=== PATIENT | male | born 1960 | race American Indian/Alaskan Native ===

== ENCOUNTER 2016-03-13 08:01 | Emergency (ER) | payer MEDICAID ==
[2016-03-13 09:43] LABS: Basophils % (Auto) 0.8 % (0.0-1.8); Eosinophils % (Auto) 2.1 % (0.0-4.3); Hematocrit 41.1 % (35.5-45.6); Hemoglobin 13.4 gm/dl (11.8-15.2); Mean Corpuscular HGB Conc 33 % (32-34); Mean Corpuscular Volume 77 fl (84-94); Platelet Count 240 K/mm3 (140-440); Red Blood Count 5.32 M/mm3 (3.65-5.03); Red Cell Distribution Width 14.8 % (13.2-15.2); White Blood Count 8.5 K/mm3 (4.5-11.0)
[2016-03-13 09:45] LABS: Bilirubin,Urine NEG (Negative); Blood,Urine NEG (Negative); Ketones,Urine NEG (Negative); Leukocyte Esterase,Urine NEG (Negative); Mucus,Urine FEW /HPF; Nitrite,Urine NEG (Negative); Protein,Urine <15 mg/dL mg/dL (Negative); Urobilinogen,Urine < 2.0 mg/dL (<2.0); WBC,Urine < 1.0 /HPF (0.0-6.0)
[2016-03-13 09:50] LABS: Mean Corpuscular Hemoglobin 25 pg (28-32)
--- NOTE | 2016-03-13 09:57 | Emergency Department Report ---
ED Extremity Problem HPI - General Chief complaint: Extremity Problem,Nontraumatic Stated complaint: LEG/FEET/DIABETIC Source: patient Mode of arrival: Ambulatory Limitations: No Limitations - History of Present Illness Initial comments: Patient is a 55-year-old diabetic male on metformin 500 mg twice a day who presents to ED complaining of left leg swelling and pain. Patient states he was seen here a while ago for the same problem. Patient describes pain as throbbing in nature. Patient states he is on Lasix as well as metformin 500 mg twice a day. Patient states bilateral leg swelling of these leg and ankle. Patient rates pain 8 out of 10. Patient states he went to see her doctor recently who prescribed him some compression stockings but patient has not been able to pick them up. Patient denies fevers/chills/nausea/vomiting/abdominal pain/pleural effusion/ headache/trauma to the leg or fall. - Related Data Previous Rx's Medication Instructions Recorded Last Taken Type Potassium Chloride 20 meq PO DAILY #7 tab.er.prt 10/19/15 Unknown Rx traMADol [Ultram 50 MG tab] 50 mg PO Q6HR PRN #20 tablet 10/19/15 Unknown Rx Furosemide [Lasix TAB] 40 mg PO QDAY #20 tablet 03/13/16 Unknown Rx HYDROcodone/APAP 5-325 [[place] 1 each PO Q6HR PRN #16 tablet 03/13/16 Unknown Rx 5/325] Ibuprofen [Motrin 800 MG tab] 800 mg PO Q8HR PRN #30 tablet 03/13/16 Unknown Rx metFORMIN [Glucophage] 500 mg PO BID #60 tablet 03/13/16 Unknown Rx Allergies Allergy/AdvReac Type Severity Reaction Status Date / Time Penicillins Allergy Hives Verified 10/19/15 07:46 ED Review of Systems ROS: Stated complaint: LEG/FEET/DIABETIC Other details as noted in HPI Constitutional: denies: chills, fever Eyes: denies: eye pain, eye discharge, vision change ENT: denies: ear pain, throat pain Respiratory: denies: cough, shortness of breath, SOB with exertion, SOB at rest , wheezing Cardiovascular: denies: chest pain, palpitations Endocrine: no symptoms reported Gastrointestinal: denies: abdominal pain, nausea, vomiting, diarrhea Genitourinary: denies: urgency, dysuria, frequency, hematuria, discharge Musculoskeletal: denies: back pain, joint swelling, arthralgia Skin: denies: rash, lesions Neurological: denies: headache, weakness, paresthesias, confusion, abnormal gait Psychiatric: denies: anxiety, depression, suicidal thoughts Hematological/Lymphatic: denies: easy bleeding, easy bruising ED Past Medical Hx - Past Medical History Hx Diabetes: Yes (type II) Additional medical history: depression - Surgical History Past Surgical History?: No - Social History Smoking Status: Current Every Day Smoker Substance Use Type: None - Medications Home Medications: Home Medications Medication Instructions Recorded Confirmed Last Taken Type Potassium Chloride 20 meq PO DAILY #7 tab.er.prt 10/19/15 Unknown Rx traMADol [Ultram 50 MG tab] 50 mg PO Q6HR PRN #20 tablet 10/19/15 Unknown Rx Furosemide [Lasix TAB] 40 mg PO QDAY #20 tablet 03/13/16 Unknown Rx HYDROcodone/APAP 5-325 [[place] 1 each PO Q6HR PRN #16 tablet 03/13/16 Unknown Rx 5/325] Ibuprofen [Motrin 800 MG tab] 800 mg PO Q8HR PRN #30 tablet 03/13/16 Unknown Rx metFORMIN [Glucophage] 500 mg PO BID #60 tablet 03/13/16 Unknown Rx ED Physical Exam - General Limitations: No Limitations General appearance: alert, in no apparent distress - Head Head exam: Present: atraumatic, normocephalic - Eye Eye exam: Present: normal appearance - ENT ENT exam: Present: normal exam, mucous membranes moist - Neck Neck exam: Present: normal inspection, full ROM - Respiratory Respiratory exam: Present: normal lung sounds bilaterally. Absent: respiratory distress, wheezes, rales, rhonchi, chest wall tenderness, accessory muscle use - Cardiovascular Cardiovascular Exam: Present: regular rate, normal rhythm. Absent: systolic murmur, diastolic murmur, rubs, gallop - GI/Abdominal GI/Abdominal exam: Present: soft, normal bowel sounds. Absent: distended, tenderness, guarding, rebound - Rectal Rectal exam: Present: deferred - Extremities Exam Extremities exam: Present: normal inspection, full ROM, normal capillary refill , pedal edema, calf tenderness - Expanded Lower Extremity Exam Left Hip exam: Present: full ROM. Absent: tenderness, swelling Upper Leg exam: Present: normal inspection, full ROM. Absent: tenderness, swelling Knee exam: Present: full ROM, swelling (2+ edema). Absent: tenderness, dislocation, erythema, effusion Lower Leg exam: Present: full ROM, tenderness (to palpation of leg), swelling (2 + edema). Absent: abrasion, dislocation, erythema, Melissa's sign Ankle exam: Present: full ROM, swelling. Absent: tenderness, dislocation, erythema Foot/Toe exam: Present: full ROM. Absent: tenderness, dislocation, erythema, puncture wound Neuro vascular tendon exam: Present: no vascular compromise Gait: Positive: observed and normal - Back Exam Back exam: Present: normal inspection. Absent: full ROM, CVA tenderness (R), CVA tenderness (L) - Neurological Exam Neurological exam: Present: alert, oriented X3, CN II-XII intact - Psychiatric Psychiatric exam: Present: normal affect, normal mood - Skin Skin exam: Present: warm, dry, intact, normal color. Absent: rash ED Course Vital Signs 03/13/16 08:41 Temperature 98.2 F Pulse Rate 109 H Respiratory 18 Rate Blood Pressure 146/92 O2 Sat by Pulse 97 Oximetry ED Medical Decision Making - Lab Data Result diagrams: 03/13/16 09:29 03/13/16 09:29 - Medical Decision Making 55-year-old diabetic male presents with diabetic foot edema ED course: Patient received Toradol 50 mg for pain. 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 Discussed with patient medication dose increase forwardly 6. CBC within normal limits, CMP within normal limits, urine within normal limits. Blood glucose slightly elevated 178 otherwise all labs normal. Bilateral Doppler studies ordered. Bilateral Doppler studies shows normalas of DVT. Discussed all results with patient and patient understands. Discussed medication as prescribed. Patient states to comply and will follow up with primary care at [facility]. Critical care attestation.: If time is entered above; I have spent that time in minutes in the direct care of this critically ill patient, excluding procedure time. ED Disposition Clinical Impression: Diabetes mellitus type 2, noninsulin dependent, Bilateral leg edema, Hyperglycemia due to type 2 diabetes mellitus Disposition: DISCHARGED TO HOME OR SELFCARE Is pt being admited?: No Does the pt Need Aspirin: No Condition: Stable Instructions: Diabetes Mellitus Type 2 in Adults (ED), Leg Edema (ED) Additional Instructions: pick pulling machine operator copy of prescription for medicool's diasox stockings and applied them as directed. Follow-up with Dr Benz's office her primary care physician. Take prescription as prescribed.. Prescriptions: metFORMIN [Glucophage] 500 mg PO BID #60 tablet Furosemide [Lasix TAB] 40 mg PO QDAY #20 tablet Ibuprofen [Motrin 800 MG tab] 800 mg PO Q8HR PRN #30 tablet PRN Reason: Pain HYDROcodone/APAP 5-325 [Franklin 5/325] 1 each PO Q6HR PRN #16 tablet PRN Reason: Pain Referrals: PRIMARY CARE, [Primary Care Provider] - 3-5 Days Forms: Work/School Release Form(ED) Time of Disposition: 11:37
[2016-03-13 10:01] LABS: Alanine Aminotransferase 26 units/L (7-56); Albumin/Globulin Ratio 0.9 %; Alkaline Phosphatase 85 units/L (35-129); Bilirubin,Total 0.3 mg/dL (0.1-1.2); Blood Urea Nitrogen 11 mg/dL (9-20); Calcium 9.1 mg/dL (8.4-10.2); Carbon Dioxide 25 mmol/L (22-30); Chloride 100.8 mmol/L (98-107); Glucose 178 mg/dL (75-100); Potassium 3.8 mmol/L (3.6-5.0); Sodium 140 mmol/L (137-145); Total Protein 8.4 g/dL (6.3-8.2)
[2016-03-13 10:08] LABS: Anion Gap 18 mmol/L
[2016-03-13] MEDS ORDERED: ULTRAM PO ONE (11:08)
[2016-03-13 12:15] VITALS: BP 140/90
--- NOTE | 2016-03-14 07:44 | Vascular Lab Report ---
LOWER EXTREMITY VENOUS DUPLEX: REASON FOR EXAM: Pain and swelling of the lower extremities. COMMENTS ON THE RIGHT: All veins visualized are freely compressible without evidence of internal echogenicity. Flow is spontaneous and phasic throughout. COMMENTS ON THE LEFT: All veins visualized are freely compressible without evidence of internal echogenicity. Flow is spontaneous and phasic throughout. Soft tissue changes at the left knee are consistent with ruptured Mckeon's cyst. IMPRESSION: No evidence of acute or chronic deep venous thrombosis in either lower extremity.
== END 2016-03-13 12:14 | disposition home or self-care (01) ==
LOC: ED 08:01
DX: E11.65 Type 2 diabetes mellitus with hyperglycemia (principal); R60.0 Localized edema; F17.200 Nicotine dependence, unspecified, uncomplicated; Z88.0 Allergy status to penicillin
CPT/HCPCS: 36415; 80053; 81001; 85025; 93970

== ENCOUNTER 2017-10-27 16:51 | Inpatient (IN) | payer MEDICAID ==
[2017-10-27] MEDS ORDERED: NACL 0.9% 500 ML 500 ML IV ONE (17:06)
[2017-10-27 17:26] LABS: Basophils % (Auto) 0.4 % (0.0-1.8); Eosinophils # (Auto) 0.1 K/mm3 (0.0-0.4); Eosinophils % (Auto) 0.7 % (0.0-4.3); Hematocrit 42.7 % (35.5-45.6); Hemoglobin 14.5 gm/dl (11.8-15.2); Lymphocytes # (Auto) 1.5 K/mm3 (1.2-5.4); Lymphocytes % (Auto) 18.8 % (13.4-35.0); Mean Corpuscular HGB Conc 34 % (32-34); Mean Corpuscular Hemoglobin 27 pg (28-32); Mean Corpuscular Volume 81 fl (84-94); Monocytes # (Auto) 0.6 K/mm3 (0.0-0.8); Monocytes % (Auto) 7.1 % (0.0-7.3); Platelet Count 214 K/mm3 (140-440); Red Cell Distribution Width 14.5 % (13.2-15.2)
--- NOTE | 2017-10-27 17:28 | Emergency Department Report ---
HPI - General Chief Complaint: Wound/Laceration Time Seen by Provider: 10/27/17 17:19 - HPI HPI: 57-year-old male presents to the emergency department from home with complaint of left leg pain, swelling and possible infection. Patient says that he has been seen for this multiple times in the past but he has had an exacerbation of it over the past month. He came in today because he thought that he saw maggots on his leg. He's been having some pain, redness and some drainage. He has a history of [id number] diabetes and takes metformin 500 mg twice daily and says he is compliant with this. He does not have a primary care physician. No recent travel or sick contacts at home. Patient walks with a cane at baseline. He washed the leg although some alcohol today but otherwise has not taken anything else specifically to treat his symptoms. ED Past Medical Hx - Past Medical History Hx Diabetes: Yes (type II) Additional medical history: depression - Social History Smoking Status: Current Every Day Smoker Substance Use Type: None - Medications Home Medications: Home Medications Medication Instructions Recorded Confirmed Last Taken Type Potassium Chloride 20 meq PO DAILY #7 tab.er.prt 10/19/15 10/27/17 Unknown Rx Furosemide [Lasix TAB] 40 mg PO QDAY #20 tablet 03/13/16 10/27/17 Unknown Rx Ibuprofen [Motrin 800 MG tab] 800 mg PO Q8HR PRN #30 tablet 03/13/16 10/27/17 Unknown Rx metFORMIN [Glucophage] 500 mg PO BID #60 tablet 03/13/16 10/27/17 Unknown Rx ED Review of Systems ROS: Stated complaint: SORE LEFT LEG Other details as noted in HPI Comment: All other systems reviewed and negative Constitutional: chills. denies: fever Eyes: denies: eye pain, eye discharge, vision change ENT: denies: ear pain, throat pain Respiratory: denies: cough, shortness of breath, wheezing Cardiovascular: denies: chest pain, palpitations Gastrointestinal: diarrhea. denies: abdominal pain Genitourinary: denies: urgency, dysuria Musculoskeletal: arthralgia, myalgia Skin: lesions, change in color Neurological: denies: headache, numbness Physical Exam - Physical Exam Vital Signs: Vital Signs 10/27/17 16:59 Temperature 99.4 F Pulse Rate 123 H Respiratory 18 Rate Blood Pressure 150/88 O2 Sat by Pulse 99 Oximetry Physical Exam: GENERAL: The patient is well-developed well-nourished. HENT: Normocephalic. Atraumatic. Patient has moist mucous membranes. EYES: Extraocular motions are intact. Pupils equal reactive to light bilaterally. NECK: Supple. Trachea is midline. CHEST/LUNGS: Clear to auscultation. There is no respiratory distress noted. HEART/CARDIOVASCULAR: Regular. There is mild tachycardia. There is no murmur. ABDOMEN: Abdomen is soft, nontender. Patient has normal bowel sounds. SKIN: Patient has cellulitis of the left lower extremity from the mid tib-fib distally to the foot. There are some signs of ulcerations starting. There is some serous oozing. He has onychomycosis of all the toenails. NEURO: The patient is awake, alert, and oriented. The patient is cooperative. The patient has no focal neurologic deficits. The patient has normal speech. MUSCULOSKELETAL: There is no tenderness or deformity. There is no evidence of acute injury. ED Course Vital Signs 10/27/17 16:59 Temperature 99.4 F Pulse Rate 123 H Respiratory 18 Rate Blood Pressure 150/88 O2 Sat by Pulse 99 Oximetry ED Medical Decision Making - Lab Data Result diagrams: 10/27/17 17:10 10/27/17 17:10 - Radiology Data Radiology results: report reviewed, image reviewed interpreted by me: X-ray of the left foot and tib-fib do not show any fractures, dislocation or any acute process. PROCEDURE: CT left tibia and fibula with contrast. TECHNIQUE: Computerized axial tomography of the LEFT lower leg was performed after the IV injection of iodinated nonionic contrast. HISTORY: Leg pain and swelling. COMPARISON: No prior studies are available for comparison. FINDINGS: The bones appear intact without fracture. There are no signs of osteomyelitis. There is severe osteoarthritis involving the knee joint. There is moderate osteoarthritis involving the ankle joint. There is a large amount of subcutaneous edema present. This begins at the knee and extends inferiorly to the ankle. There is also skin thickening present in the lower calf which could indicate cellulitis. There is an elliptical shaped fluid collection in the proximal calf. This begins at the level of the knee joint on the medial side and extends inferiorly adjacent to the proximal tibia. This small fluid collection measures 2.3 centimeters in depth by 2.1 centimeters in width by approximately 4.5 centimeters in length. Differential possibilities include a liquified hematoma, a seroma or an abscess. Interestingly there isn't a lot of subcutaneous edema adjacent to this small fluid collection. I believe this fluid is separate from the joint space. IMPRESSION: Extensive subcutaneous edema and probable cellulitis as described. Small indeterminate focal fluid collection medial to the knee and proximal tibia as described. Severe osteoarthritis involving the knee joint and moderate osteoarthritis involving the ankle joint. Transcribed By: MRM Dictated By: RAMON GRACE MD Electronically Authenticated By: RAMON GRACE MD Signed Date/Time: 10/27/172113 - Medical Decision Making Patient came in as a code sepsis as he appeared to be mounting a low-grade fever and he had some tachycardia. He is a diabetic and his sugar appears to be controlled however he does have a significant left lower extremity cellulitis and some ulcerative changes. He does not appear to take very good care of himself and does not have good follow-up with any establish primary care physician or wound care physician. For these reasons the patient will be admitted to the hospital for further evaluation and treatment and was accepted for admission by the hospitalist, Dr. Naqvi. - Differential Diagnosis sepsis, SIRS, cellulitis, abscess, osteomyelitis Critical Care Time: No Critical care attestation.: If time is entered above; I have spent that time in minutes in the direct care of this critically ill patient, excluding procedure time. ED Disposition Clinical Impression: SIRS (systemic inflammatory response syndrome) Cellulitis Qualifiers: Site of cellulitis of extremity: lower extremity Laterality: left Diabetes mellitus Qualifiers: Diabetes mellitus type: type 2 Diabetes mellitus complication status: with skin complications Disposition: - OP ADMIT IP TO THIS HOSP Is pt being admited?: Yes Condition: Fair Time of Disposition: 22:03
[2017-10-27 17:36] LABS: INR 0.86 (0.87-1.13)
[2017-10-27 17:42] LABS: Alanine Aminotransferase 16 units/L (7-56); Albumin 3.7 g/dL (3.9-5); BUN/Creatinine Ratio 20; Blood Urea Nitrogen 10 mg/dL (9-20); Calcium 9.4 mg/dL (8.4-10.2); Hemolysis Index 3
[2017-10-27] MEDS ORDERED: VANCOMYCIN/NS 1 GM/250 ML 1 GM/250 ML BAG IV SCH (18:00)
[2017-10-27] MEDS ORDERED: VANCOMYCIN 2,000 MG in NACL 0.9% 500 ML 500 ML IV ONE (18:15)
--- NOTE | 2017-10-27 18:54 | History and Physical Report ---
History of Present Illness Chief complaint: My leg hurts and it turning red History of present illness: 57 YO Male with Obesity, DM, Nicotine Dependence, BLE Lymphedema presents to ED for evaluation. Pt states that he has experienced pain and redness in he left leg over the past 1 week with worsening symptoms over the past 2 days. Pt states that the pain is 5/10, constant, worse with ambulation, and relieved with rest. Pt states that he is able to bear weight on his leg with difficulty. Pt denies fever, chills, CP, Palpitations, NVD, Trauma, productive cough, or recent ill contacts. Pt seen and evaluated in ED and found to have evidence of SIRS, as well as LLE Cellulitis. Pt admitted to medical floor. wound care consult placed in ED. Past History Past Medical History: diabetes, other (Lymphedema) Past Surgical History: No surgical history, Other (reviewed) Social history: single, smoking Family history: hypertension Medications and Allergies Allergies Allergy/AdvReac Type Severity Reaction Status Date / Time Penicillins Allergy Hives Verified 10/19/15 07:46 Home Medications Medication Instructions Recorded Confirmed Last Taken Type Potassium Chloride 20 meq PO DAILY #7 tab.er.prt 10/19/15 10/27/17 Unknown Rx Furosemide [Lasix TAB] 40 mg PO QDAY #20 tablet 03/13/16 10/27/17 Unknown Rx Ibuprofen [Motrin 800 MG tab] 800 mg PO Q8HR PRN #30 tablet 03/13/16 10/27/17 Unknown Rx metFORMIN [Glucophage] 500 mg PO BID #60 tablet 03/13/16 10/27/17 Unknown Rx Active Meds: Active Medications Vancomycin HCl 2,000 mg/ (Sodium Chloride) 540 mls @ 250 mls/hr IV ONCE ONE Stop: 10/27/17 20:24 Review of Systems Constitutional: no weight loss, no weight gain, no fever, no chills Ears, nose, mouth and throat: no ear pain, no ear discharge, no tinnitis, no decreased hearing, no nose pain Cardiovascular: no chest pain, no orthopnea, no palpitations, no rapid/ irregular heart beat, no edema, no syncope Respiratory: no cough, no cough with sputum, no excessive sputum Gastrointestinal: no nausea, no vomiting, no diarrhea, no constipation Genitourinary Male: no hematuria, no flank pain, no discharge, no urinary frequency, no urinary hesitancy, no incontinence Rectal: no pain, no incontinence, no bleeding Musculoskeletal: no neck pain, no shooting arm pain, no arm numbness/tingling, no low back pain, no shooting leg pain Integumentary: rash, redness, lesions, darkening of skin, dryness Neurological: no head injury, no transient paralysis, no paralysis, no parathesias, no numbness, no tingling, no seizures Psychiatric: no anxiety, no memory loss, no change in sleep habits, no sleep disturbances, no insomnia, no hypersomnia, no change in appetite Endocrine: no cold intolerance, no heat intolerance, no polyphagia, no excessive thirst, no polydipsia, no polyuria Hematologic/Lymphatic: no easy bruising, no easy bleeding, no lymphadenopathy, no lymphedema Allergic/Immunologic: no urticaria, no allergic rhinitis, no wheezing, no persistent infections, no anaphylaxis, no angioedema Exam - Constitutional Vitals: Temp Pulse Resp BP Pulse Ox 98.8 F 123 H 16 150/88 98 10/27/17 18:06 10/27/17 16:59 10/27/17 18:06 10/27/17 16:59 10/27/17 18:06 General appearance: Present: mild distress, obese - EENT Eyes: Present: PERRL ENT: hearing intact, clear oral mucosa - Neck Neck: Present: supple, normal ROM - Respiratory Respiratory effort: normal Respiratory: bilateral: CTA - Cardiovascular Heart Sounds: Present: S1 & S2. Absent: rub, click - Extremities Extremities: pulses symmetrical, No edema Extremity abnormal: edema, erythema, tenderness Peripheral Pulses: within normal limits - Abdominal General gastrointestinal: Present: soft, non-tender, non-distended, normal bowel sounds Male genitourinary: Present: normal - Integumentary Integumentary: Present: clear, dry - Musculoskeletal Musculoskeletal: gait normal, strength equal bilaterally - Psychiatric Psychiatric: appropriate mood/affect, intact judgment & insight - Neurologic Neurologic: CNII-XII intact, moves all extremities Results - Labs CBC & Chem 7: 10/27/17 17:10 10/27/17 17:10 Labs: Abnormal lab results 10/27/17 10/27/17 10/27/17 Range/Units 17:10 17:10 17:10 RBC 5.30 H (3.65-5.03) M/mm3 MCV 81 L (84-94) fl MCH 27 L (28-32) pg Seg Neutrophils % 73.0 H (40.0-70.0) % PT 12.1 L (12.2-14.9) Sec. INR 0.86 L (0.87-1.13) VBG pH (7.320-7.420) Potassium 3.5 L (3.6-5.0) mmol/L Carbon Dioxide 20 L (22-30) mmol/L Creatinine 0.5 L (0.8-1.5) mg/dL Glucose 112 H (75-100) mg/dL Lactic Acid (0.7-2.0) mmol/L Total Protein 8.6 H (6.3-8.2) g/dL Albumin 3.7 L (3.9-5) g/dL 10/27/17 10/27/17 Range/Units 17:10 17:10 RBC (3.65-5.03) M/mm3 MCV (84-94) fl MCH (28-32) pg Seg Neutrophils % (40.0-70.0) % PT (12.2-14.9) Sec. INR (0.87-1.13) VBG pH 7.425 H (7.320-7.420) Potassium (3.6-5.0) mmol/L Carbon Dioxide (22-30) mmol/L Creatinine (0.8-1.5) mg/dL Glucose (75-100) mg/dL Lactic Acid 2.30 H* (0.7-2.0) mmol/L Total Protein (6.3-8.2) g/dL Albumin (3.9-5) g/dL Assessment and Plan - Patient Problems (1) SIRS (systemic inflammatory response syndrome) Current Visit: Yes Status: Acute Plan to address problem: IV antibiotics, IVF resuscitation, serial lactic acid, wound cultures, blood cultures. (2) Cellulitis Current Visit: Yes Status: Acute Qualifiers: Site of cellulitis of extremity: lower extremity Laterality: left Plan to address problem: IV antibiotics, pain control, CT LLE, wound care consulted. (3) Acidosis Current Visit: Yes Status: Acute (4) DVT prophylaxis Current Visit: Yes Status: Acute Plan to address problem: Lovenox SQ daily
[2017-10-27] MEDS ORDERED: TYLENOL PO PRN (18:56)
[2017-10-27] MEDS ORDERED: PROVENTIL IH PRN (18:56)
[2017-10-27] MEDS ORDERED: SODIUM CHLORIDE FLUSH SYRINGE 10 ML IV PRN (18:56)
[2017-10-27] MEDS ORDERED: ZOFRAN IV PRN (18:56)
--- NOTE | 2017-10-27 18:59 | XRay Report ---
FINAL REPORT PROCEDURE: Left foot. TECHNIQUE: Two views. HISTORY: Foot pain. COMPARISON: No prior studies are available for comparison. FINDINGS: The bones appear intact without fracture or dislocation. The bones may be osteopenic. The joint spaces appear satisfactory. The soft tissues are unremarkable. IMPRESSION: Possible osteopenia.
[2017-10-27] MEDS ORDERED: VANCOMYCIN PHARMACY TO DOSE IV SCH (19:00)
--- NOTE | 2017-10-27 19:00 | XRay Report ---
FINAL REPORT PROCEDURE: Chest. TECHNIQUE: Portable AP view. HISTORY: Possible sepsis. COMPARISON: No prior studies are available for comparison. FINDINGS: The heart and mediastinum appear normal. The lungs are clear and well expanded. There are no pleural effusions. The soft tissues and regional skeleton are unremarkable. IMPRESSION: Negative portable chest.
--- NOTE | 2017-10-27 19:02 | XRay Report ---
FINAL REPORT PROCEDURE: Left tibia and fibula. TECHNIQUE: AP and lateral views. HISTORY: Leg pain. COMPARISON: No prior studies are available for comparison. FINDINGS: The bones appear intact without fracture or dislocation. There is moderately severe narrowing of the knee joint. There is a varus angulation deformity. There is mild osteoarthritis involving the ankle joint. The soft tissues are unremarkable. IMPRESSION: Osteoarthritis involving the knee and ankle. No evidence of fracture.
--- NOTE | 2017-10-27 21:14 | Cat Scan Report ---
FINAL REPORT PROCEDURE: CT left tibia and fibula with contrast. TECHNIQUE: Computerized axial tomography of the LEFT lower leg was performed after the IV injection of iodinated nonionic contrast. HISTORY: Leg pain and swelling. COMPARISON: No prior studies are available for comparison. FINDINGS: The bones appear intact without fracture. There are no signs of osteomyelitis. There is severe osteoarthritis involving the knee joint. There is moderate osteoarthritis involving the ankle joint. There is a large amount of subcutaneous edema present. This begins at the knee and extends inferiorly to the ankle. There is also skin thickening present in the lower calf which could indicate cellulitis. There is an elliptical shaped fluid collection in the proximal calf. This begins at the level of the knee joint on the medial side and extends inferiorly adjacent to the proximal tibia. This small fluid collection measures 2.3 centimeters in depth by 2.1 centimeters in width by approximately 4.5 centimeters in length. Differential possibilities include a liquified hematoma, a seroma or an abscess. Interestingly there isn't a lot of subcutaneous edema adjacent to this small fluid collection. I believe this fluid is separate from the joint space. IMPRESSION: Extensive subcutaneous edema and probable cellulitis as described. Small indeterminate focal fluid collection medial to the knee and proximal tibia as described. Severe osteoarthritis involving the knee joint and moderate osteoarthritis involving the ankle joint.
[2017-10-27] MEDS: LOVENOX SUB-Q SCH (23:22)
[2017-10-27] MEDS: PERCOCET 5/325 PO PRN (23:23)
[2017-10-27] MEDS: SODIUM CHLORIDE FLUSH SYRINGE 10 ML IV SCH (23:24)
[2017-10-28] MEDS ORDERED: VANCOMYCIN 1,500 MG in NACL 0.9% 500 ML 500 ML IV SCH (07:00)
[2017-10-28] MEDS: PERCOCET 5/325 PO PRN (07:19)
[2017-10-28 08:08] LABS: Bilirubin,Urine NEG (Negative); Blood,Urine NEG (Negative); Color,Urine Yellow (Yellow); Mucus,Urine 2+ /HPF; Protein,Urine <15 mg/dL mg/dL (Negative)
--- NOTE | 2017-10-28 12:51 | Progress Note ---
Assessment and Plan /Sepsis due to LLE cellulitis ( elevated lactic acid and tachycardia), poa IV antibiotics, IVF resuscitation, serial lactic acid, blood cultures. /Left LE Cellulitis IV antibiotics, pain control, CT LLE, wound care consulted. /Kypokalemia Monitor and replace /Chronic LE venous stasis - cont lasix and supportive care /DM type 2 - consistent carb diet and SSI /Morbid obesity dietary recommendation /Physical debility, PT eval / DVT prophylaxis Lovenox SQ daily - RENAL DOSE Subjective Date of service: 10/28/17 Interval history: Pt seen and examined c/o left LE pain and swelling Objective - Exam Narrative Exam: GENERAL: The patient is well-developed well-nourished. HENT: Normocephalic. Atraumatic. Patient has moist mucous membranes. EYES: Extraocular motions are intact. Pupils equal reactive to light bilaterally. NECK: Supple. Trachea is midline. CHEST/LUNGS: Clear to auscultation. There is no respiratory distress noted. HEART/CARDIOVASCULAR: Regular. There is mild tachycardia. There is no murmur. ABDOMEN: Abdomen is soft, nontender. Patient has normal bowel sounds. SKIN: Patient has cellulitis of the left lower extremity from the mid tib-fib distally to the foot. There are some signs of ulcerations starting. There is some serous oozing. He has onychomycosis of all the toenails. b/l LE skin discoloration and thickening NEURO: The patient is awake, alert, and oriented. The patient is cooperative. The patient has no focal neurologic deficits. The patient has normal speech. MUSCULOSKELETAL: There is no tenderness or deformity. - Constitutional Vitals: Vital Signs - 12hr 10/28/17 05:15 Temperature 98.5 F Pulse Rate 95 H Respiratory 18 Rate Blood Pressure 118/66 O2 Sat by Pulse 94 Oximetry - Labs CBC & Chem 7: 10/29/17 10:55 10/29/17 10:55 Labs: Abnormal lab results 10/27/17 10/27/17 10/27/17 Range/Units 17:10 17:10 17:10 RBC 5.30 H (3.65-5.03) M/mm3 MCV 81 L (84-94) fl MCH 27 L (28-32) pg Seg Neutrophils % 73.0 H (40.0-70.0) % PT 12.1 L (12.2-14.9) Sec. INR 0.86 L (0.87-1.13) VBG pH (7.320-7.420) Potassium 3.5 L (3.6-5.0) mmol/L Carbon Dioxide 20 L (22-30) mmol/L Creatinine 0.5 L (0.8-1.5) mg/dL Glucose 112 H (75-100) mg/dL POC Glucose (70-105) Lactic Acid (0.7-2.0) mmol/L Total Protein 8.6 H (6.3-8.2) g/dL Albumin 3.7 L (3.9-5) g/dL Ur Specific [place] (1.003-1.030) 10/27/17 10/27/17 10/28/17 Range/Units 17:10 17:10 07:36 RBC (3.65-5.03) M/mm3 MCV (84-94) fl MCH (28-32) pg Seg Neutrophils % (40.0-70.0) % PT (12.2-14.9) Sec. INR (0.87-1.13) VBG pH 7.425 H (7.320-7.420) Potassium (3.6-5.0) mmol/L Carbon Dioxide (22-30) mmol/L Creatinine (0.8-1.5) mg/dL Glucose (75-100) mg/dL POC Glucose (70-105) Lactic Acid 2.30 H* (0.7-2.0) mmol/L Total Protein (6.3-8.2) g/dL Albumin (3.9-5) g/dL Ur Specific [place] 1.049 H (1.003-1.030) 10/28/17 10/28/17 Range/Units 07:50 12:00 RBC (3.65-5.03) M/mm3 MCV (84-94) fl MCH (28-32) pg Seg Neutrophils % (40.0-70.0) % PT (12.2-14.9) Sec. INR (0.87-1.13) VBG pH (7.320-7.420) Potassium (3.6-5.0) mmol/L Carbon Dioxide (22-30) mmol/L Creatinine (0.8-1.5) mg/dL Glucose (75-100) mg/dL POC Glucose 124 H 115 H (70-105) Lactic Acid (0.7-2.0) mmol/L Total Protein (6.3-8.2) g/dL Albumin (3.9-5) g/dL Ur Specific [place] (1.003-1.030)
[2017-10-28] MEDS: HumuLIN R SUB-Q SCH ×3 (13:01→21:37)
[2017-10-28] MEDS: SODIUM CHLORIDE FLUSH SYRINGE 10 ML IV SCH ×2 (13:05→21:39)
[2017-10-28] MEDS: VANCOMYCIN 2,000 MG in NACL 0.9% 500 ML 500 ML IV SCH (17:35)
[2017-10-28] MEDS: LOVENOX SUB-Q SCH (21:38)
[2017-10-29] MEDS: VANCOMYCIN 2,000 MG in NACL 0.9% 500 ML 500 ML IV SCH ×2 (06:27→17:54)
[2017-10-29] MEDS: HumuLIN R SUB-Q SCH ×4 (07:56→21:38)
[2017-10-29] MEDS: SODIUM CHLORIDE FLUSH SYRINGE 10 ML IV SCH ×2 (09:26→21:13)
[2017-10-29 11:32] LABS: BUN/Creatinine Ratio 13; Blood Urea Nitrogen 4 mg/dL (9-20); Calcium 8.1 mg/dL (8.4-10.2); Hemolysis Index 3
[2017-10-29 11:37] LABS: Hematocrit 35.2 % (35.5-45.6); Hemoglobin 11.9 gm/dl (11.8-15.2); Mean Corpuscular HGB Conc 34 % (32-34); Mean Corpuscular Hemoglobin 27 pg (28-32); Mean Corpuscular Volume 80 fl (84-94); Platelet Count 204 K/mm3 (140-440); Red Blood Count 4.37 M/mm3 (3.65-5.03); Red Cell Distribution Width 13.8 % (13.2-15.2)
--- NOTE | 2017-10-29 13:48 | Progress Note ---
Assessment and Plan /Sepsis due to LLE cellulitis ( elevated lactic acid and tachycardia), poa cont IV antibiotics, serial lactic acid trended down, follow final blood culture report. /Left LE Cellulitis cont IV antibiotics, pain control, wound care consulted. CT LLE: Extensive subcutaneous edema and probable cellulitis as described. Small indeterminate focal fluid collection medial to the knee and proximal tibia as described. Severe osteoarthritis involving the knee joint and moderate osteoarthritis involving the ankle joint. /Kypokalemia Monitor and replace /Chronic LE venous stasis - cont lasix and supportive care /DM type 2 - consistent carb diet and SSI /Morbid obesity dietary recommendation /Physical debility, PT eval / DVT prophylaxis Lovenox SQ daily - RENAL DOSE Subjective Date of service: 10/29/17 Interval history: Pt seen and examined c/o left LE pain and swelling but improved from admission Objective - Exam Narrative Exam: GENERAL: The patient is well-developed well-nourished. HENT: Normocephalic. Atraumatic. Patient has moist mucous membranes. EYES: Extraocular motions are intact. Pupils equal reactive to light bilaterally. NECK: Supple. Trachea is midline. CHEST/LUNGS: Clear to auscultation. There is no respiratory distress noted. HEART/CARDIOVASCULAR: Regular. There is mild tachycardia. There is no murmur. ABDOMEN: Abdomen is soft, nontender. Patient has normal bowel sounds. SKIN: Patient has cellulitis of the left lower extremity from the mid tib-fib distally to the foot. There are some signs of ulcerations starting. There is some serous oozing. He has onychomycosis of all the toenails. b/l LE skin discoloration and thickening NEURO: The patient is awake, alert, and oriented. The patient is cooperative. The patient has no focal neurologic deficits. The patient has normal speech. MUSCULOSKELETAL: There is no tenderness or deformity. - Constitutional Vitals: Vital Signs - 12hr 10/29/17 10/29/17 10/29/17 05:13 10:00 12:49 Temperature 97.7 F 99.8 F H Pulse Rate 80 Respiratory 20 19 Rate Blood Pressure 139/78 142/105 O2 Sat by Pulse 95 96 Oximetry - Labs CBC & Chem 7: 10/29/17 10:55 10/29/17 10:55 Labs: Abnormal lab results 10/28/17 10/29/17 10/29/17 Range/Units 21:08 07:29 10:55 Hct 35.2 L D (35.5-45.6) % MCV 80 L (84-94) fl MCH 27 L (28-32) pg Potassium (3.6-5.0) mmol/L BUN (9-20) mg/dL Creatinine (0.8-1.5) mg/dL Glucose (75-100) mg/dL POC Glucose 137 H 109 H (70-105) Calcium (8.4-10.2) mg/dL 10/29/17 10/29/17 Range/Units 10:55 11:53 Hct (35.5-45.6) % MCV (84-94) fl MCH (28-32) pg Potassium 3.1 L (3.6-5.0) mmol/L BUN 4 L (9-20) mg/dL Creatinine 0.3 L (0.8-1.5) mg/dL Glucose 115 H (75-100) mg/dL POC Glucose 126 H (70-105) Calcium 8.1 L (8.4-10.2) mg/dL
[2017-10-29] MEDS: LOVENOX SUB-Q SCH (21:13)
[2017-10-29] MEDS: BENADRYL PO PRN (21:14)
[2017-10-30] MEDS: VANCOMYCIN 2,000 MG in NACL 0.9% 500 ML 500 ML IV SCH (06:17)
[2017-10-30] MEDS ORDERED: K-DUR PO ONE (07:49)
[2017-10-30] MEDS: PERCOCET 5/325 PO PRN ×2 (08:00→15:15)
[2017-10-30] MEDS: BENADRYL PO PRN (08:01)
[2017-10-30] MEDS: HumuLIN R SUB-Q SCH ×3 (08:19→17:09)
[2017-10-30] MEDS: SODIUM CHLORIDE FLUSH SYRINGE 10 ML IV SCH (09:18)
--- NOTE | 2017-10-30 12:53 | Discharge Summary ---
Providers - Providers Date of Admission: 10/27/17 18:56 Date of discharge: 10/30/17 Attending physician: AKHIL DUCKWORTH 10/27/17 19:15 Consult to Wound/ET Nurse [CONS] Routine Reason For Exam: wound eval 10/29/17 08:00 Occupational Therapy Evaluate and Treat [CONS] Urgent Comment: Reason For Exam: generalized weakness Physical Therapy Evaluation and Treat [CONS] Routine Comment: Reason For Exam: generalized weakness Primary care physician: [employer] Hospitalization Condition: Fair Hospital course: Discharge diagnosis: /Sepsis due to LLE cellulitis ( elevated lactic acid and tachycardia), poa Placed on IV antibiotics, serial lactic acid trended down, negative final blood culture report. /Left LE Cellulitis starrted on IV antibiotics, pain control, wound care recommended silicon based cream on LE and no additional wound care. Discharged with bactrim for total [address] LLE: Extensive subcutaneous edema and probable cellulitis as described. Small indeterminate focal fluid collection medial to the knee and proximal tibia as described. Severe osteoarthritis involving the knee joint and moderate osteoarthritis involving the ankle joint. /Kypokalemia Monitored and replaced /Chronic LE venous stasis with LE lymphedema - cont lasix and supportive care /DM type 2 - managed with consistent carb diet and SSI /Morbid obesity dietary recommendation provided /Physical debility, SNF placement / DVT prophylaxis Lovenox SQ daily - RENAL DOSE Physical exam; GENERAL: The patient is well-developed well-nourished. HENT: Normocephalic. Atraumatic. Patient has moist mucous membranes. EYES: Extraocular motions are intact. Pupils equal reactive to light bilaterally. NECK: Supple. Trachea is midline. CHEST/LUNGS: Clear to auscultation. There is no respiratory distress noted. HEART/CARDIOVASCULAR: Regular. There is mild tachycardia. There is no murmur. ABDOMEN: Abdomen is soft, nontender. Patient has normal bowel sounds. SKIN: Patient has reduced sign of cellulites of the left lower extremity from the mid tib-fib distally to the foot. No serous oozing. He has onychomycosis of all the toenails. b/l LE skin discoloration and thickening NEURO: The patient is awake, alert, and oriented. The patient is cooperative. The patient has no focal neurologic deficits. The patient has normal speech. MUSCULOSKELETAL: There is no tenderness or deformity. Disposition: [id number]/[place]-[id number] SNF [facility] Time spent for discharge: 34 minutes Core Measure Documentation - Palliative Care Palliative Care/ Comfort Measures: Not Applicable - Core Measures Any of the following diagnoses?: none Exam - Constitutional Vitals: Temp Pulse Resp BP Pulse Ox 99.7 F H 85 20 127/77 95 10/30/17 01:10 10/30/17 01:10 10/30/17 01:10 10/30/17 01:10 10/30/17 01:10 Plan Activity: up only with assistance Weight Bearing Status: Non-Weight Bearing Diet: diabetic Wound: keep clean and dry (silicon based cream ) Follow up with: PRIMARY CARE, [Primary Care Provider] - 7 Days Prescriptions: Sulfamethoxazole/Trimethoprim [Bactrim DS TAB] 1 each PO BID #7 tablet
[2017-10-30 13:05] VITALS: BP 140/80
[2017-10-30 13:18] LABS: BUN/Creatinine Ratio 10; Blood Urea Nitrogen 4 mg/dL (9-20); Calcium 8.6 mg/dL (8.4-10.2); Hemolysis Index 0
== END 2017-10-30 17:30 | DRG 872 ==
LOC: ED 16:51 → 3A 18:56
PROVIDERS: ADMIT Internal Medicine; ATTEND Internal Medicine
DX: A41.9 Sepsis, unspecified organism (principal); L03.116 Cellulitis of left lower limb; E87.6 Hypokalemia; I87.8 Other specified disorders of veins; E11.9 Type 2 diabetes mellitus without complications; F17.200 Nicotine dependence, unspecified, uncomplicated; F32.9 Major depressive disorder, single episode, unspecified; E66.01 Morbid (severe) obesity due to excess calories; Z68.35 Body mass index [BMI] 35.0-35.9, adult; Z82.49 Family history of ischemic heart disease and other diseases of the circulatory system; Z88.0 Allergy status to penicillin; Z79.899 Other long term (current) drug therapy
CPT/HCPCS: 36415; 71045; 80048; 80053; 81001; 82140; 82805; 82962; 83880; 85025; 85027; 85610; 87040; 87086; 93005; 93010; 96365; 96375; 99406; J1650; J3370; J7040; Q9967